=== PATIENT | male | born 1935 | race Caucasian/White ===

== ENCOUNTER 2020-01-05 14:10 | Emergency (ER) | payer MEDICARE, BC, OTHER ==
--- NOTE | 2020-01-05 14:52 | EDM.PDOC ---
ED HPI GENERAL MEDICAL PROBLEM - General Chief Complaint: General Stated Complaint: cogestive Time Seen by Provider: 01/05/20 14:46 Source of Information: Reports: Patient History Limitations: Reports: No Limitations - History of Present Illness INITIAL COMMENTS - FREE TEXT/NARRATIVE: Patient is an 84-year-old gentleman who presents to the emergency department this afternoon via private vehicle with a complaint of shortness of breath. Patient states that he was seen at [facility] on Friday, underwent chest x- ray and was diagnosed with early pneumonia. Patient states that he was put on doxycycline. Patient states symptoms have continued to worsen and now he feels short of breath. Patient also does have a history of bronchitis, and renal failure on peritoneal dialysis. Patient denies fever, chest pain, travel out of local area, family members with similar symptoms, nausea, vomiting, diarrhea. 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 Treatments - Related Data Allergies Allergy/AdvReac Type Severity Reaction Status Date / Time No Known Drug Allergies Allergy Cannot Verified 01/05/20 14:23 Remember Home Meds: Home Meds Acetaminophen [Tylenol Extra Strength] 1,000 mg PO Q6H PRN 01/05/20 [History] Albuterol [Proventil Neb Soln] 1 ampule INH QID PRN 01/05/20 [History] Calcitriol [Rocaltrol] 0.25 mcg PO DAILY 01/05/20 [History] Calcium Acetate [PhosLo] 667 mg PO TIDMEALS 01/05/20 [History] Doxycycline [Doxycycline Hyclate] 100 mg PO BID 01/05/20 [History] Ferrous Sulfate [Feosol] 325 mg PO DAILY 01/05/20 [History] Finasteride [Proscar] 5 mg PO DAILY 01/05/20 [History] Furosemide [Lasix] 80 mg PO DAILY 01/05/20 [History] Gentamicin [Gentamicin 0.1%] 1 gm TOP BEDTIME 01/05/20 [History] Insulin Glargine,Hum.Rec.Anlog [Basaglar Kwikpen U-100] 20 unit SQ DAILY [History] Insulin Glargine,Hum.Rec.Anlog [Basaglar Kwikpen U-100] 30 unit SQ BEDTIME 01/04 [History] L.acidoph,Paracasei, B.lactis [Probiotic] 1 each PO DAILY 01/05/20 [History] Lisinopril [Zestril] 20 mg PO DAILY 01/05/20 [History] Loratadine [Claritin] 10 mg PO BEDTIME 01/05/20 [History] Metoprolol Succinate [Toprol Xl] 100 mg PO DAILY 01/05/20 [History] amLODIPine [Norvasc] 5 mg PO BID 01/05/20 [History] glipiZIDE [Glucotrol] 10 mg PO BID 01/05/20 [History] hydrALAZINE [Apresoline] 50 mg PO DAILY 01/05/20 [History] Social & Family History - Tobacco Use Smoking Status *Q: Former Smoker Used Tobacco, but Quit: Yes Month/Year Tobacco Last Used: quit 1977 - Caffeine Use Caffeine Use: Reports: None - Recreational Drug Use Recreational Drug Use: No ED ROS GENERAL - Review of Systems Review Of Systems: Comprehensive ROS is negative, except as noted in HPI. Constitutional: Reports: No Symptoms HEENT: Reports: No Symptoms Respiratory: Reports: Shortness of Breath, Wheezing, Cough Cardiovascular: Reports: No Symptoms Endocrine: Reports: No Symptoms GI/Abdominal: Reports: No Symptoms : Reports: No Symptoms Musculoskeletal: Reports: No Symptoms Skin: Reports: No Symptoms Neurological: Reports: No Symptoms Psychiatric: Reports: No Symptoms Hematologic/Lymphatic: Reports: No Symptoms Immunologic: Reports: No Symptoms ED EXAM, GENERAL - Physical Exam Exam: See Below Exam Limited By: No Limitations General Appearance: Alert, WD/WN, No Apparent Distress Eye Exam: Bilateral Eye: Normal Inspection Nose: Normal Inspection, Normal Mucosa, No Blood Throat/Mouth: Normal Inspection, Normal Oropharynx, No Airway Compromise Head: Atraumatic, Normocephalic Neck: Normal Inspection. No: Lymphadenopathy (L), Lymphadenopathy (R) Respiratory/Chest: No Respiratory Distress, Rales, Wheezing Cardiovascular: Regular Rate, Rhythm, No Murmur GI/Abdominal: Normal Bowel Sounds, Soft, Non-Tender Back Exam: Normal Inspection. No: CVA Tenderness (L), CVA Tenderness (R) Extremities: Normal Inspection, No Pedal Edema Neurological: Alert, Oriented, Normal Cognition Psychiatric: Normal Affect, Normal Mood Skin Exam: Warm, Dry, Intact, Normal Color, No Rash Course - Vital Signs Last Recorded V/S: Last Vital Signs Temp 96.1 F L 01/05/20 14:18 Pulse 81 01/05/20 14:18 Resp 18 01/05/20 14:18 BP 167/66 H 01/05/20 14:18 Pulse Ox 93 L 01/05/20 14:18 - Orders/Labs/Meds Orders: Active Orders 24 hr Category Date Time Status Chest 2V [CR] Stat Exams 01/05/20 14:29 Ordered CBC WITH AUTO DIFF [HEME] Stat Lab 01/05/20 14:33 Received COMPREHENSIVE METABOLIC PN,CMP [CHEM] Stat Lab 01/05/20 14:33 Received INFLUENZA A+B AG SCREEN [RM] Stat Lab 01/05/20 14:35 Received Isolation [COMM] Routine Oth 01/05/20 14:30 Ordered - Radiology Interpretation Free Text/Narrative:: Chest x-ray shows right lower lobe pneumonia - Re-Assessments/Exams Free Text/Narrative Re-Assessment/Exam: 01/05/20 15:24 Patient afebrile, vital signs stable, influenza negative. 1 g Rocephin and 500 mg Zithromax given in ER. Due to patient's renal failure state, normal saline infusion pending to correct glucose pending upon admission. 01/05/20 15:27 01/05/20 15:34 Discussed case with Meghan Packer, nurse practitioner from [facility]. Patient will be admitted inpatient and followed. Departure - Departure Time of Disposition: 15:32 Disposition: Admitted As Inpatient 68 Condition: Fair Clinical Impression: Pneumonia - Discharge Information Referrals: PCP,Not In Area [Family Provider] - Sepsis Event Note - Evaluation Sepsis Screening Result: No Definite Risk - Focused Exam Vital Signs: Vital Signs Temp Pulse Resp BP Pulse Ox 01/05/20 14:18 96.1 F L 81 18 167/66 H 93 L Date Exam was Performed: 01/05/20 Time Exam was Performed: 14:47 - My Orders Last 24 Hours: My Active Orders 01/05/20 14:29 Chest 2V [CR] Stat 01/05/20 14:30 Isolation [COMM] Routine 01/05/20 14:33 CBC WITH AUTO DIFF [HEME] Stat COMPREHENSIVE METABOLIC PN,CMP [CHEM] Stat 01/05/20 14:35 INFLUENZA A+B AG SCREEN [RM] Stat - Assessment/Plan Last 24 Hours: My Active Orders 01/05/20 14:29 Chest 2V [CR] Stat 01/05/20 14:30 Isolation [COMM] Routine 01/05/20 14:33 CBC WITH AUTO DIFF [HEME] Stat COMPREHENSIVE METABOLIC PN,CMP [CHEM] Stat 01/05/20 14:35 INFLUENZA A+B AG SCREEN [RM] Stat Assessment:: Pneumonia Plan: Admit to [place]
--- NOTE | 2020-01-05 15:11 | CR ---
[id number] RAD/RAD Chest PA And Lateral EXAM: RAD Chest PA And Lateral CLINICAL DATA: COUGH SHORTNESS OF BREATH COMPARISON: CORRELATION IS MADE WITH JANUARY 03, 2020 FINDINGS: Persistent pleural changes of the right lung base are seen Elevation of the right hemidiaphragm is identified The left lung is clear The cardiomediastinal contour is stable IMPRESSION: PERSISTENT RIGHT-SIDED PLEURAL PATHOLOGY CONSIDER FOLLOW-UP CONTRAST CT CHEST Sukhi Salcedo MD 01/05/20 [id number] Thank you for allowing us to participate in the care of your patient.
[2020-01-05] MEDS ORDERED: Sodium Chloride 0.9% 10 ML Syringe FLUSH PRN (15:17)
[2020-01-05] MEDS: cefTRIAXone 1 GM Vial IVPUSH ONE (16:02)
[2020-01-05] MEDS: Azithromycin 500 MG in Sodium Chloride 0.9% 250 ML IV ONE (16:05)
--- NOTE | 2020-01-05 17:54 | CT ---
[id number] CT/CT Chest WO IV EXAM: CHEST CT WITHOUT CONTRAST INDICATION: PNEUMONIA. COMPARISON: Chest x-ray January 05, 2020. DISCUSSION: Mild elevation of the right hemidiaphragm which could relate to diaphragmatic dysfunction. There are hyperdense infiltrates in the posterior basal right lower lobe which could be from previous barium aspiration. Mild bilateral peripheral reticulation is nonspecific. No definite acute consolidation. There is a small right pleural effusion with a thick rind suggesting this could be chronic or complicated by blood products/infection. Borderline heart size. Small ascites in the imaged upper abdomen. Exophytic 17 mm cyst upper pole left kidney. Arterial calcifications. A hyperdense mass anterior to the great vessels and trachea in the superior mediastinum measures about 50 x 41 x 27 mm. The [place] thyroid gland is small in size. This is nonspecific, but could represent retrosternal thyroid tissue or enlarged lymph node. The osseous structures are unremarkable. IMPRESSION: 1. Hyperdense posterior basal right lower lobe opacities most suggestive of previous barium aspiration. No definite acute infiltrates. 2. Small right pleural effusion with a surrounding thick rind suggesting this is chronic or has superimposed blood products or infection. 3. Small ascites in the upper abdomen. 4. Indeterminate 50 x 41 x 27 mm hyperdense upper mediastinal mass. Arnulfo Diego MD 01/05/20 [id number] Thank you for allowing us to participate in the care of your patient.
== END 2020-01-05 17:30 | disposition critical access hospital (66) ==
LOC: KA.ED 14:10
DX: J18.9 Pneumonia, unspecified organism (principal); Z87.891 Personal history of nicotine dependence; Z79.899 Other long term (current) drug therapy
CPT/HCPCS: 36415; 71046; 71250; 80053; 85025; 87804; 96365; 96375; 99284; 99285-25; J0456; J0696; J7050